=== PATIENT | male | born 1975 | race Hispanic/Latino ===

== ENCOUNTER 2022-06-22 12:07 | Inpatient (IN) | payer BC ==
[2022-06-22] MEDS ORDERED: Ondansetron PF 4 MG/2 ML Vial ONE (13:28)
[2022-06-22 13:34] LABS: #Monocytes 0.7 10x3/uL (0.0-1.1); #Neutrophils 7.4 10x3/uL (1.5-8.4); %Basophils 0.2 % (0.0-2.0); %Eosinophils 0.4 % (0.0-6.0); %Lymphocytes 17.1 % (18.0-47.0); %Monocytes 7.4 % (0.0-10.0); %Neutrophils 74.7 % (40.0-75.0); Hemoglobin 15.7 g/dL (13.5-17.5); Mean Corpuscular HGB CONC 35.8 g/dL (32.0-36.0); Mean Corpuscular Hemoglobin 32.3 pg (27.0-33.0); Mean Corpuscular Volume 90.1 fl (81.2-95.1); Mean Platelet Volume 9.9 fl (7.4-10.4); Platelet Count 184 10x3/uL (150-450); RBC Distribution Width 12.3 % (11.5-14.5); Red Blood Cell (RBC) Count 4.86 10x6/uL (4.32-5.72)
[2022-06-22 13:47] LABS: ALT (SGPT) 182 U/L (8-55); AST (SGOT) 267 U/L (5-34); Albumin 3.9 g/dL (3.5-5.0); Alkaline Phosphatase 113 U/L (40-110); Anion Gap 14 mmol/L (10-20); BUN (Urea Nitrogen) 12 mg/dL (8.9-20.6); Bilirubin, Total 1.8 mg/dL (0.2-1.2); CK (CPK) 478 U/L (30-200); Calc. Creatinine Clearance 0 mL/min (70-130); Calcium 8.7 mg/dL (7.8-10.44); Carbon Dioxide 26 mmol/L (22-29); Chloride 101 mmol/L (98-107); Estimated GFR 103; Globulin 3.4 g/dL (2.4-3.5); Glucose 127 mg/dL (70-105); Lipase 457 U/L (8-78); Protein, Total 7.3 g/dL (6.0-8.3); Sodium 137 mmol/L (136-145)
[2022-06-22] MEDS ORDERED: Morphine 4 MG/ML VIAL ONE (14:44)
[2022-06-22 16:29] LABS: PTT 27.1 sec (22.0-33.0); Prothrombin Time 10.9 sec (9.5-12.1)
[2022-06-22] MEDS ORDERED: Ondansetron ODT 4 MG TAB PO PRN (17:03)
[2022-06-22] MEDS ORDERED: Senokot S 8.6-50 MG TAB PO PRN (17:03)
[2022-06-22] MEDS ORDERED: cloNIDine 0.1 MG TAB PO PRN (17:08)
[2022-06-22] MEDS ORDERED: Lorazepam 1 MG TAB PO PRN (17:09)
[2022-06-22] MEDS ORDERED: Lorazepam 2 MG/ML VIAL IM PRN (17:09)
[2022-06-22] MEDS ORDERED: Electrolyte Replacement Protocol 1 EACH FS SCH (17:15)
[2022-06-22] MEDS: Thiamine HCl 200 MG/2 ML VIAL SLOW IVP SCH (18:05)
[2022-06-22] MEDS: Sodium Chloride 0.9% 1,000 ML IV SCH (18:05)
[2022-06-22 18:11] VITALS: BMI 36.3
[2022-06-22] MEDS: Morphine 2 MG/ML VIAL SLOW IVP PRN ×2 (18:31→21:45)
[2022-06-22] MEDS: Famotidine/PF 20 mg/2ml Vial SLOW IVP SCH (20:18)
[2022-06-22] MEDS: Ondansetron PF 4 MG/2 ML Vial IVP PRN (21:53)
[2022-06-22] MEDS: Propranolol HCl 20 MG TAB PO SCH (21:57)
[2022-06-23] MEDS ORDERED: Morphine 2 MG/ML VIAL SLOW IVP SCH (00:45)
[2022-06-23] MEDS: Morphine 2 MG/ML VIAL SLOW IVP PRN ×5 (02:22→21:23)
[2022-06-23] MEDS: Sodium Chloride 0.9% 1,000 ML IV SCH ×3 (02:25→20:22)
[2022-06-23 06:41] LABS: #Neutrophils 16.9 10x3/uL (1.5-8.4); %Basophils 0.1 % (0.0-2.0); %Eosinophils 0.1 % (0.0-6.0); %Lymphocytes 5.6 % (18.0-47.0); %Monocytes 5.3 % (0.0-10.0); %Neutrophils 88.5 % (40.0-75.0); Hemoglobin 16.4 g/dL (13.5-17.5); Mean Corpuscular HGB CONC 35.6 g/dL (32.0-36.0); Mean Platelet Volume 10.3 fl (7.4-10.4); Platelet Count 185 10x3/uL (150-450); Red Blood Cell (RBC) Count 5.12 10x6/uL (4.32-5.72); White Blood Cell (WBC) Count 19.1 10x3/uL (3.5-10.5)
[2022-06-23 06:46] LABS: ALT (SGPT) 130 U/L (8-55); AST (SGOT) 146 U/L (5-34); Albumin 3.5 g/dL (3.5-5.0); Alkaline Phosphatase 86 U/L (40-110); Anion Gap 11 mmol/L (10-20); BUN (Urea Nitrogen) 12 mg/dL (8.9-20.6); Bilirubin, Total 2.4 mg/dL (0.2-1.2); Calc. Creatinine Clearance 167 mL/min (70-130); Calcium 8.2 mg/dL (7.8-10.44); Carbon Dioxide 21 mmol/L (22-29); Chloride 103 mmol/L (98-107); Estimated GFR 111; Globulin 3.4 g/dL (2.4-3.5); Glucose 130 mg/dL (70-105); Magnesium 1.8 mg/dL (1.6-2.6); Phosphorus 2.5 mg/dL (2.3-4.7); Potassium 4.1 mmol/L (3.5-5.1); Protein, Total 6.9 g/dL (6.0-8.3); Sodium 131 mmol/L (136-145)
[2022-06-23 06:58] LABS: Lipase 3626 U/L (8-78)
[2022-06-23] MEDS ORDERED: Magnesium 2 GM/50 ML(in water) 2 GM in Premix Bag 1 BAG IVPB SCH (09:00)
[2022-06-23] MEDS: Enoxaparin Sodium 40 MG/0.4 ML SYRINGE SC SCH (09:04)
[2022-06-23] MEDS: Famotidine/PF 20 mg/2ml Vial SLOW IVP SCH ×2 (09:04→20:19)
[2022-06-23] MEDS: Multivit, Therapeutic 1 TAB PO SCH (09:04)
[2022-06-23] MEDS: Folic Acid 1 MG TAB PO SCH (09:05)
[2022-06-23] MEDS: Ondansetron PF 4 MG/2 ML Vial IVP PRN (09:05)
[2022-06-23] MEDS: Propranolol HCl 20 MG TAB PO SCH (11:22)
[2022-06-23] MEDS ORDERED: Lorazepam 1 MG TAB PO PRN (17:09)
[2022-06-23] MEDS: Thiamine HCl 200 MG/2 ML VIAL SLOW IVP SCH (18:34)
[2022-06-23] MEDS: Simethicone Chewable 80 MG TAB PO PRN (21:28)
[2022-06-24 02:54] LABS: Bilirubin 1+ (Negative); Blood, Urine 250 (Negative); Clarity Cloudy (Clear); Glucose, Urine (Dipstick) Normal (Negative); Ketone, Urine 150 mg/dL (Negative); Leukocyte 25 (Negative); Nitrite Positive (Negative); Protein, Urine (Dipstick) 100 mg/dl (Neg-Trace)
[2022-06-24] MEDS: Morphine 2 MG/ML VIAL SLOW IVP PRN ×5 (03:12→20:28)
[2022-06-24 03:17] LABS: Bacteria/HPF 2+ HPF (None Seen); RBC/HPF Greater than 50 HPF (0-3); Squamous Epithelial 0-3 HPF (0-3)
[2022-06-24] MEDS: cefTRIAXone\\ROCEPHIN 1 GM in Sodium Chloride 0.9% 100 ML IVPB SCH (05:25)
[2022-06-24 05:28] LABS: #Neutrophils 17.1 10x3/uL (1.5-8.4); %Basophils 0.2 % (0.0-2.0); %Eosinophils 0.2 % (0.0-6.0); %Lymphocytes 8.1 % (18.0-47.0); %Monocytes 5.1 % (0.0-10.0); %Neutrophils 85.9 % (40.0-75.0); Hemoglobin 15.6 g/dL (13.5-17.5); Mean Corpuscular HGB CONC 34.9 g/dL (32.0-36.0); Mean Corpuscular Hemoglobin 32.2 pg (27.0-33.0); Mean Corpuscular Volume 92.4 fl (81.2-95.1); Mean Platelet Volume 10.2 fl (7.4-10.4); Platelet Count 147 10x3/uL (150-450); RBC Distribution Width 13.2 % (11.5-14.5); Red Blood Cell (RBC) Count 4.84 10x6/uL (4.32-5.72); White Blood Cell (WBC) Count 19.9 10x3/uL (3.5-10.5)
[2022-06-24 05:57] LABS: ALT (SGPT) 81 U/L (8-55); AST (SGOT) 71 U/L (5-34); Albumin 3.2 g/dL (3.5-5.0); Alkaline Phosphatase 78 U/L (40-110); Anion Gap 14 mmol/L (10-20); BUN (Urea Nitrogen) 12 mg/dL (8.9-20.6); Bilirubin, Total 1.9 mg/dL (0.2-1.2); Calc. Creatinine Clearance 164 mL/min (70-130); Calcium 8.3 mg/dL (7.8-10.44); Carbon Dioxide 19 mmol/L (22-29); Cardiac Risk 6.4 (Less than 4.5); Chloride 104 mmol/L (98-107); Cholesterol 103 mg/dl (< 200 Desired); Estimated GFR 110; Globulin 3.5 g/dL (2.4-3.5); Glucose 104 mg/dL (70-105); HDL Cholesterol 16 mg/dL (>60 Neg Risk); LDL Cholesterol, Calculated 39 mg/dL; Magnesium 2.3 mg/dL (1.6-2.6); Phosphorus 1.9 mg/dL (2.3-4.7); Potassium 4.2 mmol/L (3.5-5.1); Protein, Total 6.7 g/dL (6.0-8.3); Sodium 133 mmol/L (136-145); Triglycerides 240 mg/dL (Less than 150)
[2022-06-24] MEDS: Sodium Chloride 0.9% 1,000 ML IV SCH ×3 (06:00→23:43)
[2022-06-24] MEDS: PHOS-NAK 1 PKT PACK PO SCH ×2 (06:12→10:23)
[2022-06-24] MEDS: Folic Acid 1 MG TAB PO SCH (10:22)
[2022-06-24] MEDS: Multivit, Therapeutic 1 TAB PO SCH (10:22)
[2022-06-24] MEDS: Famotidine/PF 20 mg/2ml Vial SLOW IVP SCH ×2 (10:22→20:30)
[2022-06-24] MEDS: Enoxaparin Sodium 40 MG/0.4 ML SYRINGE SC SCH (10:22)
[2022-06-24] MEDS: Simethicone Chewable 80 MG TAB PO PRN (14:51)
[2022-06-24] MEDS: Thiamine HCl 200 MG/2 ML VIAL SLOW IVP SCH (16:48)
[2022-06-24] MEDS ORDERED: Lorazepam 1 MG TAB PO PRN (17:09)
[2022-06-25] MEDS: Morphine 2 MG/ML VIAL SLOW IVP PRN ×6 (00:37→21:09)
[2022-06-25] MEDS: cefTRIAXone\\ROCEPHIN 1 GM in Sodium Chloride 0.9% 100 ML IVPB SCH (04:46)
[2022-06-25] MEDS: Sodium Chloride 0.9% 1,000 ML IV SCH ×3 (05:15→21:14)
[2022-06-25 05:54] LABS: #Eosinphils 0.1 10x3/uL (0.0-0.5); #Monocytes 1.4 10x3/uL (0.0-1.1); #Neutrophils 12.3 10x3/uL (1.5-8.4); %Basophils 0.1 % (0.0-2.0); %Eosinophils 0.8 % (0.0-6.0); %Lymphocytes 11.1 % (18.0-47.0); %Monocytes 8.8 % (0.0-10.0); %Neutrophils 78.8 % (40.0-75.0); Hemoglobin 13.9 g/dL (13.5-17.5); Mean Corpuscular HGB CONC 33.9 g/dL (32.0-36.0); Mean Corpuscular Hemoglobin 31.7 pg (27.0-33.0); Mean Corpuscular Volume 93.6 fl (81.2-95.1); Mean Platelet Volume 10.1 fl (7.4-10.4); Platelet Count 142 10x3/uL (150-450); RBC Distribution Width 13.2 % (11.5-14.5); Red Blood Cell (RBC) Count 4.38 10x6/uL (4.32-5.72); White Blood Cell (WBC) Count 15.6 10x3/uL (3.5-10.5)
[2022-06-25 06:14] LABS: ALT (SGPT) 53 U/L (8-55); AST (SGOT) 51 U/L (5-34); Albumin 2.9 g/dL (3.5-5.0); Alkaline Phosphatase 74 U/L (40-110); Anion Gap 14 mmol/L (10-20); BUN (Urea Nitrogen) 11 mg/dL (8.9-20.6); Bilirubin, Total 1.3 mg/dL (0.2-1.2); Calc. Creatinine Clearance 164 mL/min (70-130); Calcium 8.2 mg/dL (7.8-10.44); Carbon Dioxide 19 mmol/L (22-29); Chloride 102 mmol/L (98-107); Estimated GFR 110; Globulin 4.1 g/dL (2.4-3.5); Glucose 81 mg/dL (70-105); Potassium 4.1 mmol/L (3.5-5.1); Sodium 131 mmol/L (136-145)
[2022-06-25 06:26] LABS: Lipase 1134 U/L (8-78)
[2022-06-25] MEDS: PHOS-NAK 1 PKT PACK PO SCH ×2 (08:01→11:26)
[2022-06-25] MEDS: Folic Acid 1 MG TAB PO SCH (08:12)
[2022-06-25] MEDS: Multivit, Therapeutic 1 TAB PO SCH (08:12)
[2022-06-25] MEDS: Famotidine/PF 20 mg/2ml Vial SLOW IVP SCH ×2 (08:12→21:10)
[2022-06-25] MEDS: Enoxaparin Sodium 40 MG/0.4 ML SYRINGE SC SCH (08:13)
[2022-06-25] MEDS ORDERED: Meropenem 1 GM in Sodium Chloride 0.9% 100 ML IVPB SCH (12:30)
[2022-06-25] MEDS: Cefepime 2 GM in Sodium Chloride 0.9% 100 ML IVPB SCH (13:13)
[2022-06-25] MEDS: metroNIDAZOLE 500 MG in Premix Bag 1 BAG IVPB SCH ×2 (14:46→21:07)
[2022-06-25] MEDS: Polyethylene Glycol 3350 17 GM Packet PO PRN (16:29)
[2022-06-25] MEDS: Thiamine 100 MG TAB PO SCH (16:29)
[2022-06-25] MEDS ORDERED: Lorazepam 0.5 MG TAB PO PRN (17:09)
[2022-06-25] MEDS: Simethicone Chewable 80 MG TAB PO PRN ×2 (17:59→21:08)
[2022-06-25] MEDS: Senokot S 8.6-50 MG TAB PO SCH (21:08)
[2022-06-26] MEDS: Cefepime 2 GM in Sodium Chloride 0.9% 100 ML IVPB SCH ×2 (00:33→13:50)
[2022-06-26] MEDS: Morphine 2 MG/ML VIAL SLOW IVP PRN ×6 (00:34→21:43)
[2022-06-26] MEDS: metroNIDAZOLE 500 MG in Premix Bag 1 BAG IVPB SCH ×3 (05:13→21:44)
[2022-06-26 05:18] LABS: #Eosinphils 0.1 10x3/uL (0.0-0.5); #Monocytes 1.2 10x3/uL (0.0-1.1); #Neutrophils 8.5 10x3/uL (1.5-8.4); %Basophils 0.2 % (0.0-2.0); %Eosinophils 1.2 % (0.0-6.0); %Lymphocytes 10.6 % (18.0-47.0); %Monocytes 10.5 % (0.0-10.0); %Neutrophils 76.9 % (40.0-75.0); Mean Corpuscular HGB CONC 33.7 g/dL (32.0-36.0); Mean Corpuscular Hemoglobin 31.9 pg (27.0-33.0); Mean Corpuscular Volume 94.6 fl (81.2-95.1); Mean Platelet Volume 9.9 fl (7.4-10.4); Platelet Count 147 10x3/uL (150-450); RBC Distribution Width 12.8 % (11.5-14.5); Red Blood Cell (RBC) Count 4.08 10x6/uL (4.32-5.72); White Blood Cell (WBC) Count 11.1 10x3/uL (3.5-10.5)
[2022-06-26 05:38] LABS: ALT (SGPT) 48 U/L (8-55); AST (SGOT) 45 U/L (5-34); Alkaline Phosphatase 81 U/L (40-110); Anion Gap 12 mmol/L (10-20); BUN (Urea Nitrogen) 9 mg/dL (8.9-20.6); Bilirubin, Total 1.3 mg/dL (0.2-1.2); Calc. Creatinine Clearance 178 mL/min (70-130); Calcium 8.4 mg/dL (7.8-10.44); Carbon Dioxide 22 mmol/L (22-29); Chloride 102 mmol/L (98-107); Estimated GFR 113; Globulin 3.5 g/dL (2.4-3.5); Glucose 82 mg/dL (70-105); Phosphorus 2.6 mg/dL (2.3-4.7); Potassium 3.6 mmol/L (3.5-5.1); Protein, Total 6.5 g/dL (6.0-8.3); Sodium 132 mmol/L (136-145)
[2022-06-26] MEDS ORDERED: Magnesium 2 GM/50 ML(in water) 2 GM in Premix Bag 1 BAG IVPB SCH (06:00)
[2022-06-26] MEDS: Sodium Chloride 0.9% 1,000 ML IV SCH (06:35)
[2022-06-26] MEDS: Polyethylene Glycol 3350 17 GM Packet PO PRN (06:39)
[2022-06-26] MEDS ORDERED: NS 0.9% w/ 20 MEQ KCL 1,000 ML/1,000 ML BAG IV SCH (08:45)
[2022-06-26] MEDS: Folic Acid 1 MG TAB PO SCH (09:17)
[2022-06-26] MEDS: Simethicone Chewable 80 MG TAB PO PRN (09:17)
[2022-06-26] MEDS: Multivit, Therapeutic 1 TAB PO SCH (09:18)
[2022-06-26] MEDS: Senokot S 8.6-50 MG TAB PO SCH ×2 (09:19→21:44)
[2022-06-26] MEDS: Famotidine/PF 20 mg/2ml Vial SLOW IVP SCH ×2 (09:20→21:43)
[2022-06-26] MEDS: Enoxaparin Sodium 40 MG/0.4 ML SYRINGE SC SCH (09:20)
[2022-06-26] MEDS: NS 0.9% w/ 20 MEQ KCL 1,000 ML/1,000 ML BAG IV SCH (12:07)
[2022-06-26] MEDS: Simethicone Chewable 80 MG TAB PO SCH ×3 (13:50→21:45)
[2022-06-26] MEDS: Thiamine 100 MG TAB PO SCH (17:55)
[2022-06-27] MEDS: NS 0.9% w/ 20 MEQ KCL 1,000 ML/1,000 ML BAG IV SCH ×2 (01:02→15:24)
[2022-06-27] MEDS: Cefepime 2 GM in Sodium Chloride 0.9% 100 ML IVPB SCH ×2 (01:02→12:52)
[2022-06-27] MEDS: Morphine 2 MG/ML VIAL SLOW IVP PRN ×4 (01:33→23:20)
[2022-06-27 05:32] LABS: ALT (SGPT) 39 U/L (8-55); AST (SGOT) 32 U/L (5-34); Albumin 2.9 g/dL (3.5-5.0); Alkaline Phosphatase 71 U/L (40-110); Anion Gap 11 mmol/L (10-20); BUN (Urea Nitrogen) 6 mg/dL (8.9-20.6); Bilirubin, Total 0.9 mg/dL (0.2-1.2); Calc. Creatinine Clearance 175 mL/min (70-130); Calcium 8.4 mg/dL (7.8-10.44); Carbon Dioxide 24 mmol/L (22-29); Chloride 104 mmol/L (98-107); Estimated GFR 112; Globulin 3.4 g/dL (2.4-3.5); Glucose 132 mg/dL (70-105); Lipase 786 U/L (8-78); Magnesium 2.1 mg/dL (1.6-2.6); Phosphorus 3.3 mg/dL (2.3-4.7); Potassium 3.9 mmol/L (3.5-5.1); Protein, Total 6.3 g/dL (6.0-8.3); Sodium 135 mmol/L (136-145)
[2022-06-27 05:35] LABS: #Eosinphils 0.2 10x3/uL (0.0-0.5); #Neutrophils 6.7 10x3/uL (1.5-8.4); %Basophils 0.2 % (0.0-2.0); %Eosinophils 1.6 % (0.0-6.0); %Lymphocytes 14.4 % (18.0-47.0); %Monocytes 10.9 % (0.0-10.0); %Neutrophils 72.3 % (40.0-75.0); Hemoglobin 13.2 g/dL (13.5-17.5); Mean Corpuscular Volume 91.5 fl (81.2-95.1); Platelet Count 172 10x3/uL (150-450); RBC Distribution Width 12.8 % (11.5-14.5); Red Blood Cell (RBC) Count 4.12 10x6/uL (4.32-5.72); White Blood Cell (WBC) Count 9.2 10x3/uL (3.5-10.5)
[2022-06-27] MEDS: metroNIDAZOLE 500 MG in Premix Bag 1 BAG IVPB SCH ×3 (05:51→21:39)
[2022-06-27] MEDS: Enoxaparin Sodium 40 MG/0.4 ML SYRINGE SC SCH (09:43)
[2022-06-27] MEDS: Simethicone Chewable 80 MG TAB PO SCH ×4 (09:44→21:38)
[2022-06-27] MEDS: Multivit, Therapeutic 1 TAB PO SCH (09:44)
[2022-06-27] MEDS: Senokot S 8.6-50 MG TAB PO SCH ×2 (09:44→21:38)
[2022-06-27] MEDS: Folic Acid 1 MG TAB PO SCH (09:44)
[2022-06-27] MEDS: Thiamine 100 MG TAB PO SCH (17:21)
[2022-06-28] MEDS: Cefepime 2 GM in Sodium Chloride 0.9% 100 ML IVPB SCH (00:47)
[2022-06-28] MEDS: NS 0.9% w/ 20 MEQ KCL 1,000 ML/1,000 ML BAG IV SCH ×2 (02:15→05:15)
[2022-06-28] MEDS: metroNIDAZOLE 500 MG in Premix Bag 1 BAG IVPB SCH (05:15)
[2022-06-28 08:27] VITALS: BP 124/70; TEMP 97.9
[2022-06-28] MEDS: Multivit, Therapeutic 1 TAB PO SCH (09:07)
[2022-06-28] MEDS: Enoxaparin Sodium 40 MG/0.4 ML SYRINGE SC SCH (09:07)
[2022-06-28] MEDS: Simethicone Chewable 80 MG TAB PO SCH (09:07)
[2022-06-28] MEDS: Folic Acid 1 MG TAB PO SCH (09:07)
[2022-06-28] MEDS: Senokot S 8.6-50 MG TAB PO SCH (09:10)
== END 2022-06-28 11:22 | disposition home or self-care (01) | DRG 439 ==
LOC: CSHERS 12:07 → CSHTELE 17:00
PROVIDERS: ADMIT Internal Medicine; ATTEND Internal Medicine
PROC: HZ2ZZZZ Detoxification Services for Substance Abuse Treatment (ICD-10-PCS; principal; 2022-06-22)
DX: K85.20 Alcohol induced acute pancreatitis without necrosis or infection (principal); E87.1 Hypo-osmolality and hyponatremia; F10.239 Alcohol dependence with withdrawal, unspecified; R65.10 Systemic inflammatory response syndrome (SIRS) of non-infectious origin without acute organ dysfunction; Z20.822 Contact with and (suspected) exposure to COVID-19; K70.10 Alcoholic hepatitis without ascites; I10 Essential (primary) hypertension; E83.42 Hypomagnesemia; E83.39 Other disorders of phosphorus metabolism; E78.5 Hyperlipidemia, unspecified; E78.1 Pure hyperglyceridemia
CPT/HCPCS: 36415; 74178; 76705; 80053; 80061; 81001; 82550; 83690; 83735; 84100; 84478; 84484; 85025; 85610; 85730; 87086; 93005; 94760; 96361; 96374; 96375; J0692; J0696; J1650; J2270; J2405; J3411; J3475; J3480; J3490; J7050; Q0162; S0028; U0003; U0005

== ENCOUNTER 2022-11-22 21:12 | Emergency (ER) | payer BC ==
[~2022-11-22 21:12] MED LIST: Iopamidol 300 61% 100 ML VIAL FS ONE
[2022-11-22] MEDS ORDERED: Ondansetron PF 4 MG/2 ML Vial ONE (23:21)
[2022-11-22] MEDS ORDERED: Morphine 4 MG/ML VIAL ONE (23:23)
[2022-11-22 23:32] LABS: #Monocytes 0.6 10x3/uL (0.0-1.1); #Neutrophils 7.2 10x3/uL (1.5-8.4); %Basophils 0.4 % (0.0-2.0); %Eosinophils 0.2 % (0.0-6.0); %Lymphocytes 24.1 % (18.0-47.0); Hemoglobin 16.2 g/dL (13.5-17.5); Mean Corpuscular HGB CONC 35.9 g/dL (32.0-36.0); Mean Corpuscular Hemoglobin 31.7 pg (27.0-33.0); Mean Corpuscular Volume 88.3 fl (81.2-95.1); Mean Platelet Volume 10.1 fl (7.4-10.4); Platelet Count 286 10x3/uL (150-450); RBC Distribution Width 12.6 % (11.5-14.5); Red Blood Cell (RBC) Count 5.11 10x6/uL (4.32-5.72); White Blood Cell (WBC) Count 10.4 10x3/uL (3.5-10.5)
[2022-11-22 23:59] LABS: ALT (SGPT) 50 U/L (8-55); AST (SGOT) 52 U/L (5-34); Albumin 4.2 g/dL (3.5-5.0); Alkaline Phosphatase 72 U/L (40-110); Anion Gap 19 mmol/L (10-20); BUN (Urea Nitrogen) 14 mg/dL (8.9-20.6); Calc. Creatinine Clearance 0 mL/min (70-130); Carbon Dioxide 20 mmol/L (22-29); Chloride 100 mmol/L (98-107); Estimated GFR 108; Globulin 3.8 g/dL (2.4-3.5); Glucose 152 mg/dL (70-105); Lipase 290 U/L (8-78); Magnesium 2.1 mg/dL (1.6-2.6); Potassium 3.9 mmol/L (3.5-5.1); Sodium 135 mmol/L (136-145)
[2022-11-23 00:09] LABS: Bilirubin, Total 0.6 mg/dL (0.2-1.2)
[2022-11-23] MEDS ORDERED: Ketorolac Tromethamine 30 MG/ML VIAL ONE (00:26)
[2022-11-23] MEDS ORDERED: Ondansetron ODT 4 MG TAB ONE (02:25)
[2022-11-23] MEDS ORDERED: HYDROcodone/Acetaminophen 5/325 mg Tablet ONE ×2 (02:25→02:59)
[2022-11-23] MEDS ORDERED: Ondansetron PF 4 MG/2 ML Vial ONE (02:59)
[2022-11-23] MEDS ORDERED: Multivitamins, Adult 10 ML, Folic Acid 1 MG, Thiamine HCl 100 MG in Dextrose 5 %-0.45 %... IV SCH (03:15)
== END 2022-11-23 04:30 | disposition home or self-care (01) ==
LOC: CSHERS 21:12
DX: K85.90 Acute pancreatitis without necrosis or infection, unspecified (principal)
CPT/HCPCS: 74177; 80053; 83690; 83735; 85025; 96361; 96365; 96375; 96376; J1885; J2270; J2405; J3411; J7042; Q0162

== ENCOUNTER 2022-11-23 10:02 | Inpatient (IN) | payer BC ==
[2022-11-23] MEDS ORDERED: Ketorolac Tromethamine 30 MG/ML VIAL ONE (10:29)
[2022-11-23] MEDS ORDERED: Ondansetron PF 4 MG/2 ML Vial ONE (10:29)
[2022-11-23] MEDS ORDERED: HYDROcodone/Acetaminophen 5/325 mg Tablet ONE (10:30)
[2022-11-23] MEDS ORDERED: Pantoprazole 40 MG VIAL ONE (10:30)
[2022-11-23] MEDS ORDERED: Morphine 2 MG/ML VIAL ONE (10:30)
[2022-11-23 11:00] LABS: Acetaminophen Less than 10.0 mcg/mL (10.0-30.0); Alcohol Less than 10 mg/dL (Less than 10); Lipase 829 U/L (8-78); Salicylate Less than 8.0 mg/dL (15.0-30.0)
[2022-11-23 11:53] LABS: #Monocytes 1.1 10x3/uL (0.0-1.1); #Neutrophils 12.9 10x3/uL (1.5-8.4); %Basophils 0.2 % (0.0-2.0); %Eosinophils 0.1 % (0.0-6.0); %Lymphocytes 11.4 % (18.0-47.0); %Monocytes 6.7 % (0.0-10.0); %Neutrophils 81.3 % (40.0-75.0); Hemoglobin 15.2 g/dL (13.5-17.5); Mean Corpuscular HGB CONC 35.4 g/dL (32.0-36.0); Mean Corpuscular Hemoglobin 32.1 pg (27.0-33.0); Mean Corpuscular Volume 90.7 fl (81.2-95.1); Mean Platelet Volume 10.2 fl (7.4-10.4); Platelet Count 285 10x3/uL (150-450); Red Blood Cell (RBC) Count 4.73 10x6/uL (4.32-5.72); White Blood Cell (WBC) Count 15.9 10x3/uL (3.5-10.5)
[2022-11-23] MEDS ORDERED: Ondansetron ODT 4 MG TAB PO PRN (12:02)
[2022-11-23] MEDS ORDERED: Lorazepam 1 MG TAB PO PRN (12:02)
[2022-11-23] MEDS ORDERED: Lorazepam 2 MG/ML VIAL IM PRN (12:02)
[2022-11-23 12:03] LABS: ALT (SGPT) 48 U/L (8-55); AST (SGOT) 51 U/L (5-34); Albumin 4.1 g/dL (3.5-5.0); Alkaline Phosphatase 67 U/L (40-110); Anion Gap 16 mmol/L (10-20); BUN (Urea Nitrogen) 16 mg/dL (8.9-20.6); Bilirubin, Total 0.9 mg/dL (0.2-1.2); Calc. Creatinine Clearance 0 mL/min (70-130); Calcium 8.7 mg/dL (7.8-10.44); Carbon Dioxide 20 mmol/L (22-29); Chloride 101 mmol/L (98-107); Estimated GFR 96; Globulin 3.8 g/dL (2.4-3.5); Glucose 125 mg/dL (70-105); Protein, Total 7.9 g/dL (6.0-8.3); Sodium 133 mmol/L (136-145)
[2022-11-23] MEDS ORDERED: Lorazepam 1 MG TAB PO SCH (12:15)
[2022-11-23] MEDS ORDERED: Electrolyte Replacement Protocol 1 EACH FS SCH ×2 (12:15→15:30)
[2022-11-23 12:45] LABS: Syphilis Antibody Nonreactive (Nonreactive); Syphilis Antibody Index 0.04 S/CO (<1.00 Non-Reactive)
[2022-11-23 13:12] VITALS: BMI 34.4
[2022-11-23] MEDS: Thiamine HCl 200 MG/2 ML VIAL SLOW IVP SCH (13:23)
[2022-11-23] MEDS: Morphine 4 MG/ML VIAL SLOW IVP PRN ×3 (13:25→21:34)
[2022-11-23] MEDS: Sodium Chloride 0.9% 1,000 ML IV SCH (13:28)
[2022-11-23] MEDS: Ondansetron PF 4 MG/2 ML Vial IVP PRN (15:06)
[2022-11-23] MEDS ORDERED: cloNIDine 0.1 MG TAB PO PRN (15:18)
[2022-11-23 16:54] LABS: SARS-CoV-2 NAA Rapid Test Not Detected (NotDetected)
[2022-11-23 23:53] LABS: Amphetamine Not Detected (NotDetected); Barbiturates Screen Not Detected (NotDetected); Benzodiazepine Screen Detected (NotDetected); Cocaine Metabolite Screen Not Detected (NotDetected); Methadone Not Detected (NotDetected); Methamphetamine Not Detected (NotDetected); Opiate Screen Detected (NotDetected); Oxycodone Screen Not Detected (NotDetected); Phencyclidine (PCP) Not Detected (NotDetected); THC/Cannabinoid Screen Not Detected (NotDetected); Tricyclic Screen Not Detected (NotDetected)
[2022-11-24] MEDS: Sodium Chloride 0.9% 1,000 ML IV SCH (01:23)
[2022-11-24] MEDS: Morphine 4 MG/ML VIAL SLOW IVP PRN ×5 (01:33→19:51)
[2022-11-24 06:55] LABS: Hemoglobin 16.2 g/dL (13.5-17.5); Mean Corpuscular HGB CONC 35.5 g/dL (32.0-36.0); Mean Corpuscular Hemoglobin 31.7 pg (27.0-33.0); Mean Corpuscular Volume 89.2 fl (81.2-95.1); Mean Platelet Volume 10.1 fl (7.4-10.4); Platelet Count 218 10x3/uL (150-450); RBC Distribution Width 13.2 % (11.5-14.5); Red Blood Cell (RBC) Count 5.11 10x6/uL (4.32-5.72); White Blood Cell (WBC) Count 20.4 10x3/uL (3.5-10.5)
[2022-11-24 07:10] LABS: MDiff Complete? YES
[2022-11-24 07:15] LABS: Band 19 % (5-11); Lymphocytes 1 % (21-51); Monocytes 2 % (0-10); Neutrophil 78 % (42-75); Platelet Morphology Comment Appears Adequate
[2022-11-24 07:16] LABS: RBC Morphology Normal
[2022-11-24 07:19] LABS: ALT (SGPT) 34 U/L (8-55); AST (SGOT) 41 U/L (5-34); Albumin 3.7 g/dL (3.5-5.0); Alkaline Phosphatase 65 U/L (40-110); Bilirubin, Direct 0.3 mg/dL (0.1-0.3); Phosphorus 2.7 mg/dL (2.3-4.7)
[2022-11-24 07:21] LABS: Anion Gap 14 mmol/L (10-20); BUN (Urea Nitrogen) 17 mg/dL (8.9-20.6); Calc. Creatinine Clearance 153 mL/min (70-130); Calcium 8.5 mg/dL (7.8-10.44); Carbon Dioxide 21 mmol/L (22-29); Chloride 103 mmol/L (98-107); Estimated GFR 108; Glucose 148 mg/dL (70-105); Potassium 4.2 mmol/L (3.5-5.1); Sodium 134 mmol/L (136-145)
[2022-11-24 07:43] LABS: Lipase 2202 U/L (8-78)
[2022-11-24] MEDS ORDERED: Magnesium 2 GM/50 ML(in water) 2 GM in Premix Bag 1 BAG IVPB SCH (09:00)
[2022-11-24] MEDS: Folic Acid 1 MG TAB PO SCH (09:40)
[2022-11-24] MEDS: Multivit, Therapeutic 1 TAB PO SCH (09:40)
[2022-11-24] MEDS ORDERED: Sodium Chloride 0.9% 1,000 ML IV SCH (10:45)
[2022-11-24] MEDS: Ondansetron PF 4 MG/2 ML Vial IVP PRN (11:44)
[2022-11-24] MEDS: Lorazepam 1 MG TAB PO SCH ×3 (11:44→23:17)
[2022-11-24] MEDS ORDERED: Lorazepam 1 MG TAB PO PRN (12:02)
[2022-11-24] MEDS: Thiamine HCl 200 MG/2 ML VIAL SLOW IVP SCH (13:37)
[2022-11-24] MEDS: D5 1/2 NS w/20 mEq KCL 1,000 ML IV SCH ×3 (13:38→23:22)
[2022-11-24] MEDS ORDERED: FLU VACC QS2022-23(6MOS UP)/PF 60 MCG/0.5 ML SYRINGE IM ONE (13:45)
[2022-11-24] MEDS ORDERED: Lorazepam 1 MG TAB PO SCH (15:00)
[2022-11-25] MEDS: Morphine 4 MG/ML VIAL SLOW IVP PRN ×6 (00:14→21:07)
[2022-11-25 05:25] LABS: Bilirubin Neg (Negative); Blood, Urine 250 (Negative); Clarity Cloudy (Clear); Glucose, Urine (Dipstick) 50 mg/dL (Negative); Ketone, Urine 5 mg/dL (Negative); Leukocyte 25 (Negative); Nitrite Negative (Negative); Protein, Urine (Dipstick) 100 mg/dl (Neg-Trace); Specific Gravity, Urine 1.015 (1.005-1.030); pH, Urine 6.5 (5.0-9.0)
[2022-11-25] MEDS: Lorazepam 1 MG TAB PO SCH ×4 (05:49→22:44)
[2022-11-25 06:09] LABS: ALT (SGPT) 21 U/L (8-55); AST (SGOT) 27 U/L (5-34); Albumin 3.3 g/dL (3.5-5.0); Alkaline Phosphatase 57 U/L (40-110); Anion Gap 11 mmol/L (10-20); BUN (Urea Nitrogen) 13 mg/dL (8.9-20.6); Bilirubin, Total 0.8 mg/dL (0.2-1.2); Calc. Creatinine Clearance 167 mL/min (70-130); Calcium 8.1 mg/dL (7.8-10.44); Carbon Dioxide 21 mmol/L (22-29); Chloride 103 mmol/L (98-107); Estimated GFR 111; Globulin 3.2 g/dL (2.4-3.5); Glucose 140 mg/dL (70-105); Lipase 660 U/L (8-78); Magnesium 2.3 mg/dL (1.6-2.6); Potassium 4.3 mmol/L (3.5-5.1); Protein, Total 6.5 g/dL (6.0-8.3); Sodium 131 mmol/L (136-145)
[2022-11-25 06:11] LABS: #Monocytes 0.9 10x3/uL (0.0-1.1); #Neutrophils 17.7 10x3/uL (1.5-8.4); %Basophils 0.2 % (0.0-2.0); %Eosinophils 0.1 % (0.0-6.0); %Monocytes 4.6 % (0.0-10.0); %Neutrophils 89.6 % (40.0-75.0); Hemoglobin 14.6 g/dL (13.5-17.5); Mean Corpuscular HGB CONC 35.8 g/dL (32.0-36.0); Mean Corpuscular Hemoglobin 32.6 pg (27.0-33.0); Mean Corpuscular Volume 91.1 fl (81.2-95.1); Mean Platelet Volume 10.4 fl (7.4-10.4); Platelet Count 167 10x3/uL (150-450); RBC Distribution Width 13.5 % (11.5-14.5); Red Blood Cell (RBC) Count 4.48 10x6/uL (4.32-5.72); White Blood Cell (WBC) Count 19.8 10x3/uL (3.5-10.5)
[2022-11-25 06:12] LABS: CRP (Inflammatory) 24.43 mg/dL (= or < 0.5); Phosphorus 1.5 mg/dL (2.3-4.7)
[2022-11-25 06:24] LABS: Bacteria/HPF Rare-Few HPF (None Seen); RBC/HPF Greater than 50 HPF (0-3); Squamous Epithelial 0-3 HPF (0-3)
[2022-11-25] MEDS ORDERED: Potassium Phosphate 30 MMOL in Sodium Chloride 0.9% 250 ML 250 ML IVPB SCH (06:30)
[2022-11-25] MEDS: D5 1/2 NS w/20 mEq KCL 1,000 ML IV SCH ×2 (07:07→15:34)
[2022-11-25] MEDS: Cefepime 2 GM in Sodium Chloride 0.9% 100 ML IVPB SCH ×2 (09:27→20:04)
[2022-11-25] MEDS: metroNIDAZOLE 500 MG TAB PO SCH ×3 (09:45→21:07)
[2022-11-25] MEDS: Folic Acid 1 MG TAB PO SCH (09:46)
[2022-11-25] MEDS: Multivit, Therapeutic 1 TAB PO SCH (09:46)
[2022-11-25] MEDS: PHOS-NAK 1 PKT PACK PO SCH ×4 (09:49→20:04)
[2022-11-25] MEDS ORDERED: Lorazepam 1 MG TAB PO PRN (12:02)
[2022-11-25] MEDS ORDERED: Lorazepam 0.5 MG TAB PO SCH (12:15)
[2022-11-25] MEDS: Thiamine HCl 200 MG/2 ML VIAL SLOW IVP SCH (12:48)
[2022-11-25 15:00] LABS: Bilirubin Neg (Negative); Blood, Urine 250 (Negative); Clarity Cloudy (Clear); Glucose, Urine (Dipstick) 50 mg/dL (Negative); Ketone, Urine Negative (Negative); Leukocyte 25 (Negative); Nitrite Negative (Negative); Protein, Urine (Dipstick) 100 mg/dl (Neg-Trace); Urobilinogen Normal mg/dL (Less than 2)
[2022-11-25 15:16] LABS: Bacteria/HPF None Seen HPF (None Seen); Squamous Epithelial 0-3 HPF (0-3); WBC/HPF 0-3 HPF (0-3)
[2022-11-25] MEDS: Simethicone Chewable 80 MG TAB PO SCH ×2 (18:04→21:07)
[2022-11-25] MEDS: Senokot S 8.6-50 MG TAB PO SCH (21:07)
[2022-11-25] MEDS: Cyanocobalamin (Vitamin B-12) 1,000 MCG TAB PO SCH (21:07)
[2022-11-26] MEDS: Morphine 4 MG/ML VIAL SLOW IVP PRN ×2 (00:30→05:21)
[2022-11-26] MEDS: D5 1/2 NS w/20 mEq KCL 1,000 ML IV SCH ×5 (00:30→23:10)
[2022-11-26] MEDS: HYDROcodone/Acetaminophen 5/325 mg Tablet PO PRN ×2 (00:30→08:20)
[2022-11-26] MEDS: Lorazepam 1 MG TAB PO SCH (05:17)
[2022-11-26 05:49] LABS: #Eosinphils 0.1 10x3/uL (0.0-0.5); #Neutrophils 13.4 10x3/uL (1.5-8.4); %Basophils 0.1 % (0.0-2.0); %Eosinophils 0.6 % (0.0-6.0); %Lymphocytes 8.4 % (18.0-47.0); %Monocytes 6.4 % (0.0-10.0); %Neutrophils 84.2 % (40.0-75.0); Hemoglobin 13.3 g/dL (13.5-17.5); Mean Corpuscular HGB CONC 35.5 g/dL (32.0-36.0); Mean Corpuscular Hemoglobin 32.3 pg (27.0-33.0); Mean Platelet Volume 10.5 fl (7.4-10.4); Platelet Count 169 10x3/uL (150-450); RBC Distribution Width 13.6 % (11.5-14.5); Red Blood Cell (RBC) Count 4.12 10x6/uL (4.32-5.72); White Blood Cell (WBC) Count 15.9 10x3/uL (3.5-10.5)
[2022-11-26 05:51] LABS: ALT (SGPT) 15 U/L (8-55); AST (SGOT) 19 U/L (5-34); Albumin 3.2 g/dL (3.5-5.0); Alkaline Phosphatase 65 U/L (40-110); Anion Gap 14 mmol/L (10-20); BUN (Urea Nitrogen) 9 mg/dL (8.9-20.6); Bilirubin, Total 0.8 mg/dL (0.2-1.2); Calc. Creatinine Clearance 159 mL/min (70-130); Calcium 8.3 mg/dL (7.8-10.44); Carbon Dioxide 17 mmol/L (22-29); Chloride 103 mmol/L (98-107); Estimated GFR 109; Globulin 3.3 g/dL (2.4-3.5); Glucose 128 mg/dL (70-105); Lipase 319 U/L (8-78); Potassium 3.7 mmol/L (3.5-5.1); Protein, Total 6.5 g/dL (6.0-8.3); Sodium 130 mmol/L (136-145)
[2022-11-26 06:08] LABS: Phosphorus 2.5 mg/dL (2.3-4.7)
[2022-11-26] MEDS ORDERED: Cefepime 2 GM VIAL ONE (07:45)
[2022-11-26] MEDS ORDERED: D5 1/2 NS w/20 mEq KCL 0 ML ONE (07:49)
[2022-11-26] MEDS: metroNIDAZOLE 500 MG TAB PO SCH ×3 (08:14→23:07)
[2022-11-26] MEDS: Senokot S 8.6-50 MG TAB PO SCH ×2 (08:14→23:09)
[2022-11-26] MEDS: Folic Acid 1 MG TAB PO SCH (08:14)
[2022-11-26] MEDS: Multivit, Therapeutic 1 TAB PO SCH (08:14)
[2022-11-26] MEDS: Simethicone Chewable 80 MG TAB PO SCH ×4 (08:14→23:07)
[2022-11-26] MEDS: Cefepime 2 GM in Sodium Chloride 0.9% 100 ML IVPB SCH ×2 (08:15→17:24)
[2022-11-26] MEDS ORDERED: HYDROcodone/Acetaminophen 5/325 mg Tablet PO PRN ×2 (10:33)
[2022-11-26] MEDS ORDERED: Lorazepam 0.5 MG TAB PO PRN (12:02)
[2022-11-26] MEDS: Thiamine 100 MG TAB PO SCH (12:09)
[2022-11-26] MEDS: Morphine 2 MG/ML VIAL SLOW IVP PRN ×2 (12:09→23:10)
[2022-11-26] MEDS: Lorazepam 0.5 MG TAB PO SCH ×3 (12:09→23:07)
[2022-11-26] MEDS ORDERED: Lorazepam 0.5 MG TAB ONE (22:38)
[2022-11-26] MEDS: Sodium Bicarbonate Tab 325 MG TAB PO SCH (23:08)
[2022-11-26] MEDS: Cyanocobalamin (Vitamin B-12) 1,000 MCG TAB PO SCH (23:09)
[2022-11-27] MEDS: Morphine 2 MG/ML VIAL SLOW IVP PRN ×2 (03:42→21:47)
[2022-11-27] MEDS: D5 1/2 NS w/20 mEq KCL 1,000 ML IV SCH ×3 (03:48→21:53)
[2022-11-27] MEDS: Lorazepam 0.5 MG TAB PO SCH (06:22)
[2022-11-27] MEDS: Cefepime 2 GM in Sodium Chloride 0.9% 100 ML IVPB SCH ×2 (06:25→21:36)
[2022-11-27 07:04] LABS: Lactic Acid 0.5 mmol/L (0.5-2.2)
[2022-11-27 07:11] LABS: ALT (SGPT) 16 U/L (8-55); AST (SGOT) 18 U/L (5-34); Albumin 3.2 g/dL (3.5-5.0); Alkaline Phosphatase 77 U/L (40-110); Anion Gap 13 mmol/L (10-20); BUN (Urea Nitrogen) 10 mg/dL (8.9-20.6); Bilirubin, Total 0.7 mg/dL (0.2-1.2); Calc. Creatinine Clearance 170 mL/min (70-130); Calcium 8.5 mg/dL (7.8-10.44); Carbon Dioxide 19 mmol/L (22-29); Chloride 102 mmol/L (98-107); Estimated GFR 112; Globulin 3.3 g/dL (2.4-3.5); Glucose 129 mg/dL (70-105); Magnesium 2.1 mg/dL (1.6-2.6); Phosphorus 2.8 mg/dL (2.3-4.7); Protein, Total 6.5 g/dL (6.0-8.3); Sodium 130 mmol/L (136-145)
[2022-11-27 07:18] LABS: #Eosinphils 0.1 10x3/uL (0.0-0.5); #Monocytes 1.1 10x3/uL (0.0-1.1); #Neutrophils 10.3 10x3/uL (1.5-8.4); %Basophils 0.2 % (0.0-2.0); %Eosinophils 0.9 % (0.0-6.0); %Lymphocytes 9.5 % (18.0-47.0); %Monocytes 8.8 % (0.0-10.0); %Neutrophils 80.1 % (40.0-75.0); Hemoglobin 12.7 g/dL (13.5-17.5); Mean Corpuscular HGB CONC 34.4 g/dL (32.0-36.0); Mean Corpuscular Hemoglobin 31.3 pg (27.0-33.0); Mean Corpuscular Volume 90.9 fl (81.2-95.1); Mean Platelet Volume 10.2 fl (7.4-10.4); Platelet Count 175 10x3/uL (150-450); RBC Distribution Width 13.5 % (11.5-14.5); Red Blood Cell (RBC) Count 4.06 10x6/uL (4.32-5.72); White Blood Cell (WBC) Count 12.8 10x3/uL (3.5-10.5)
[2022-11-27] MEDS: Senokot S 8.6-50 MG TAB PO SCH ×2 (09:10→21:35)
[2022-11-27] MEDS: metroNIDAZOLE 500 MG TAB PO SCH ×3 (09:10→21:35)
[2022-11-27] MEDS: Simethicone Chewable 80 MG TAB PO SCH ×4 (09:10→21:53)
[2022-11-27] MEDS: Multivit, Therapeutic 1 TAB PO SCH (09:10)
[2022-11-27] MEDS: Folic Acid 1 MG TAB PO SCH (09:10)
[2022-11-27] MEDS: Sodium Bicarbonate Tab 325 MG TAB PO SCH ×3 (09:11→21:34)
[2022-11-27] MEDS ORDERED: Polyethylene Glycol 3350 17 GM Packet PO PRN (09:12)
[2022-11-27] MEDS ORDERED: Polyethylene Glycol 3350 17 GM Packet PO SCH (09:15)
[2022-11-27] MEDS: Thiamine 100 MG TAB PO SCH (12:37)
[2022-11-27] MEDS: Cyanocobalamin (Vitamin B-12) 1,000 MCG TAB PO SCH (21:35)
[2022-11-28 05:37] LABS: #Eosinphils 0.2 10x3/uL (0.0-0.5); #Monocytes 1.3 10x3/uL (0.0-1.1); #Neutrophils 9.3 10x3/uL (1.5-8.4); %Basophils 0.2 % (0.0-2.0); %Eosinophils 1.3 % (0.0-6.0); %Lymphocytes 13.2 % (18.0-47.0); %Monocytes 10.2 % (0.0-10.0); %Neutrophils 74.4 % (40.0-75.0); ALT (SGPT) 15 U/L (8-55); AST (SGOT) 19 U/L (5-34); Albumin 3.3 g/dL (3.5-5.0); Alkaline Phosphatase 76 U/L (40-110); Anion Gap 14 mmol/L (10-20); BUN (Urea Nitrogen) 12 mg/dL (8.9-20.6); Bilirubin, Total 0.6 mg/dL (0.2-1.2); Calc. Creatinine Clearance 170 mL/min (70-130); Calcium 8.4 mg/dL (7.8-10.44); Carbon Dioxide 20 mmol/L (22-29); Chloride 101 mmol/L (98-107); Estimated GFR 112; Glucose 120 mg/dL (70-105); Hemoglobin 13.5 g/dL (13.5-17.5); Magnesium 2.1 mg/dL (1.6-2.6); Mean Corpuscular HGB CONC 34.6 g/dL (32.0-36.0); Mean Corpuscular Hemoglobin 31.5 pg (27.0-33.0); Mean Corpuscular Volume 91.1 fl (81.2-95.1); Mean Platelet Volume 10.2 fl (7.4-10.4); Platelet Count 226 10x3/uL (150-450); Potassium 3.9 mmol/L (3.5-5.1); Protein, Total 6.3 g/dL (6.0-8.3); RBC Distribution Width 13.3 % (11.5-14.5); Red Blood Cell (RBC) Count 4.28 10x6/uL (4.32-5.72); Sodium 131 mmol/L (136-145); White Blood Cell (WBC) Count 12.5 10x3/uL (3.5-10.5)
[2022-11-28] MEDS: D5 1/2 NS w/20 mEq KCL 1,000 ML IV SCH ×2 (05:42→08:49)
[2022-11-28 05:47] LABS: Phosphorus 3.6 mg/dL (2.3-4.7)
[2022-11-28] MEDS: Cefepime 2 GM in Sodium Chloride 0.9% 100 ML IVPB SCH (06:26)
[2022-11-28] MEDS: Sodium Bicarbonate Tab 325 MG TAB PO SCH (08:43)
[2022-11-28] MEDS: metroNIDAZOLE 500 MG TAB PO SCH (08:43)
[2022-11-28] MEDS: Simethicone Chewable 80 MG TAB PO SCH (08:44)
[2022-11-28] MEDS: Folic Acid 1 MG TAB PO SCH (08:44)
[2022-11-28] MEDS: Multivit, Therapeutic 1 TAB PO SCH (08:44)
[2022-11-28] MEDS: Senokot S 8.6-50 MG TAB PO SCH (08:44)
[2022-11-28] MEDS: Morphine 2 MG/ML VIAL SLOW IVP PRN (08:48)
[2022-11-28] MEDS: Thiamine 100 MG TAB PO SCH (11:11)
[2022-11-28 12:54] VITALS: BP 134/84; TEMP 98.4
== END 2022-11-28 12:10 | disposition home or self-care (01) | DRG 439 ==
LOC: CSHERS 10:02 → CSHTELE 11:55 → OBSVTOIN 11-24 09:30
PROVIDERS: ADMIT Internal Medicine; ATTEND Internal Medicine
DX: K85.20 Alcohol induced acute pancreatitis without necrosis or infection (principal); E87.1 Hypo-osmolality and hyponatremia; E87.20 Acidosis, unspecified; K86.3 Pseudocyst of pancreas; R65.10 Systemic inflammatory response syndrome (SIRS) of non-infectious origin without acute organ dysfunction; F10.10 Alcohol abuse, uncomplicated; Z20.822 Contact with and (suspected) exposure to COVID-19; K70.10 Alcoholic hepatitis without ascites; I10 Essential (primary) hypertension; E78.5 Hyperlipidemia, unspecified; E83.39 Other disorders of phosphorus metabolism; R31.0 Gross hematuria; Z87.891 Personal history of nicotine dependence
CPT/HCPCS: 36415; 36416; 74177; 76705; 80048; 80053; 80076; 80306; 80307; 81001; 83605; 83690; 83735; 84100; 85025; 86140; 86780; 94760; 96361; 96365; 96374; 96375; 96376; C9113; G0378; J0692; J1885; J2270; J2272; J2405; J3411; J3475; J3480; J3490; J7042; J7050; Q0162; Q9967; U0002